=== PATIENT | female | born 1985 | race Hispanic/Latino ===

== ENCOUNTER 2020-01-23 19:39 | Emergency (ER) | payer OTHER ==
[~2020-01-23] VITALS: Ht 149.9 cm; Wt 68.0 kg
--- OUTSIDE RECORDS SUMMARY | 2020-01-23 19:42 | XMS REPORT ---
Author Author [facility] Address Unknown Phone Unavailable Care Team Providers Care Lapidarist Name Role Phone Unavailable Unavailable Payers Payer Name Policy Type Policy Number Effective Date Expiration Date Problems This patient has no known problems. Allergies, Adverse Reactions, Alerts Allergy Name Allergy Type Status Severity Reaction(s) Onset Date Inactive Date Treating Clinician Comments No Known Drug Intolerances DA Active U 2005-10-01 00:00:00 No Known Contrast Allergies DA Active U 2005-10-01 00:00:00 No Known Drug Allergies DA Active U 2005-10-01 00:00:00 No Known Food Allergies DA Active U 2005-10-01 00:00:00 No Known Other Allergies DA Active U 2005-10-01 00:00:00 Medications This patient has no known medications.
== END 2020-01-23 20:42 | disposition home or self-care (01) ==
LOC: ER 19:39
DX: O02.0 Blighted ovum and nonhydatidiform mole (principal); N93.9 Abnormal uterine and vaginal bleeding, unspecified